=== PATIENT | male | born 1970 | race Caucasian/White ===

== ENCOUNTER 2022-11-30 09:09 | Emergency (ER) | payer BC ==
[~2022-11-30] VITALS: Ht 152.4 cm; Wt 122.0 kg
[2022-11-30] MEDS ORDERED: CEPHALEXIN500 M1 PO (09:41)
[2022-11-30 10:05] VITALS: BP 139/85
== END 2022-11-30 10:06 | disposition home or self-care (01) ==
LOC: ED 09:09
DX: L03.115 Cellulitis of right lower limb (principal)
CPT/HCPCS: 99283; A9270